=== PATIENT | female | born 1960 | race Caucasian/White ===

== ENCOUNTER → 2017-08-24 | Outpatient (CLI) | payer OTHER ==
[~2017-08-24] MED LIST: CEFDINIR; CITALOPRAM; HYDROCODONE; LEVOTHYROXINE; SIMVASTATIN; TRIBENZOR; ZOLPIDEM
--- NOTE | 2017-08-24 18:12 | Diagnostic Imaging Report ---
PROCEDURE: Frontal and lateral views of the chest. COMPARISON: [facility], CT, CT ABDOMEN AND PELVIS WITH CONTRAST, 05/05/2009, 19:41. Patients [facility], DX, CHEST 2 VIEWS, 09/05/2010, 0:35. INDICATIONS: POSITIVE HISTONE ANTIBODY, ABNORMAL FINDING IN LUNG FIELD. FINDINGS: Lines/tubes: None. Lungs: The lungs are well inflated. Mild coarsening of the pulmonary interstitium, predominantly in the lower lobes. No evidence of consolidation or pulmonary edema. Pleura: There is no pleural effusion or pneumothorax. Heart and mediastinum: Cardiac silhouette is unremarkable. Pulmonary vasculature is normal Bones: No acute bony abnormality. Degenerative changes in the thoracic spine. IMPRESSION: 1. No acute cardiopulmonary abnormalities. 2. Mild coarsening of the pulmonary interstitium, predominantly in the lower lobes, which may reflect chronic interstitial changes. CT chest may be obtained for further evaluation, if clinically indicated. Norberto Castro M.D. Dictated by: Norberto Castro M.D. on 08/24/2017 at 18:17 Electronically approved by: Norberto Castro M.D. on 08/24/2017 at 18:17
== END ==
LOC: RAD 16:43
PROVIDERS: ATTEND Internal Medicine Rheumatology
DX: R76.0 Raised antibody titer (principal); R91.8 Other nonspecific abnormal finding of lung field
CPT/HCPCS: 71046